=== PATIENT | male | born 1970 | race Hispanic/Latino ===

== ENCOUNTER 2024-04-11 07:05 | Observation (INO) | payer BC ==
[2024-04-10 10:53] LABS: BASOPHILS # (AUTO) 0.1 (0.0-0.1); BASOPHILS % 0.5 % (0.0-1.0); EOSINOPHILS # (AUTO) 0.2 (0.0-0.4); EOSINOPHILS % 1.9 % (0.0-6.0); HEMATOCRIT 47.1 % (38.2-49.6); HEMOGLOBIN 14.8 g/dL (14.0-18.0); LYMPHOCYTES # (AUTO) 3.5 (1.0-3.2); LYMPHOCYTES % 33.9 % (18.0-39.1); MEAN CORPUSCULAR HGB CONC 31.4 g/dL (31-35); MEAN CORPUSCULAR VOLUME 92.4 fL (81-99); MONOCYTES # (AUTO) 0.8 (0.2-0.8); MONOCYTES % 7.3 % (4.4-11.3); NEUTROPHILS # (AUTO) 5.8 (2.1-6.9); NEUTROPHILS % 56.2 % (38.7-80.0); PLATELET COUNT 245 x10e3/uL (140-360); RED CELL DISTRIBUTION WIDTH 13.5 % (11.7-14.4); WHITE BLOOD COUNT 10.36 x10e3/uL (4.8-10.8)
[2024-04-10 11:07] LABS: INR 0.87; PROTHROMBIN TIME 12.4 seconds (11.9-14.5)
[2024-04-10 11:08] LABS: PARTIAL THROMBOPLASTIN TIME 25.1 seconds (23.8-35.5)
[2024-04-10 11:19] LABS: ANION GAP 14.5 mmol/L (8-16); CALCIUM 10.2 mg/dL (8.4-10.2); CREATININE, SERUM 0.91 mg/dL (0.72-1.25); POTASSIUM 3.5 mmol/L (3.5-5.1)
[~2024-04-11] VITALS: Ht 180.3 cm; Wt 86.2 kg
[2024-04-11] MEDS: CEFAZOLIN SODIUM 2 GM ONE (08:03)
[2024-04-11] MEDS: LACTATED RINGER'S 1,000 ML ONE (08:03)
[2024-04-11] MEDS ORDERED: ZINC PO (08:05)
[2024-04-11] MEDS ORDERED: VITAMIN B-650 MG PO (08:05)
[2024-04-11] MEDS ORDERED: POTASSIUM99 M1 PO (08:05)
[2024-04-11] MEDS ORDERED: FOLIC ACID0.4 MG PO (08:05)
[2024-04-11] MEDS ORDERED: LIDOCAINE HCL 2% LOCAL INJ 5 ML SDV VIAL INJ ONE (08:11)
[2024-04-11] MEDS ORDERED: ACETAMINOPHEN 1000 MG/100 ML 100 ML IV ONE (08:11)
[2024-04-11] MEDS ORDERED: ROCURONIUM BROMIDE 1 ML IV ONE (08:11)
[2024-04-11] MEDS ORDERED: MIDAZOLAM HCL 2 MG/2 ML VIAL ONE (08:11)
[2024-04-11] MEDS ORDERED: PROPOFOL IV EMULSION 10 MG/ML 20 ML VIAL ONE (08:11)
[2024-04-11] MEDS ORDERED: FENTANYL CITRATE/PF 100MCG/2 ML INJ ONE ×2 (08:11→10:27)
[2024-04-11] MEDS ORDERED: ONDANSETRON HCL INJ 2MG/ML 2ML 2 MG/ML VIAL ONE (09:37)
[2024-04-11] MEDS ORDERED: DEXAMETHASONE SOD PHOS INJ 4 MG/ML SDV ONE (09:37)
[2024-04-11] MEDS ORDERED: HYDROCODON-ACE1 EA12 PO (10:40)
[2024-04-11] MEDS ORDERED: MAGNESIUM/ALUMINUM/SIMETHICONE 30 ML UDC PO PRN (10:45)
[2024-04-11] MEDS ORDERED: PROMETHAZINE HCL (IM) 25 MG/ML VIAL IM PRN (10:45)
[2024-04-11] MEDS ORDERED: CARISOPRODOL 350 MG TAB PO PRN (10:45)
[2024-04-11] MEDS ORDERED: OXYCODONE/ACETAMINOPHEN 5-325 1 EACH TABLET PO PRN (10:45)
[2024-04-11] MEDS ORDERED: ACETAMINOPHEN 325 MG TAB PO PRN (10:45)
[2024-04-11] MEDS ORDERED: ONDANSETRON HCL INJ 2MG/ML 2ML 2 MG/ML VIAL IV PRN (10:45)
[2024-04-11] MEDS ORDERED: Morphine 10mg syringe 10 MG/ML INJ IM PRN (10:45)
[2024-04-11] MEDS ORDERED: ZOLPIDEM TARTRATE 5 MG TAB PO PRN (10:45)
[2024-04-11 12:21] VITALS: BP 132/89; PULSE 68; RESP 18; TEMP 97.5; O2SAT 96
[2024-04-11] MEDS: LACTATED RINGER'S 1,000 ML IV SCH (12:39)
[2024-04-11 13:26] VITALS: BP 132/89; PULSE 68; RESP 18; TEMP 97.5; O2SAT 96
[2024-04-11 13:36] VITALS: BP 132/89; PULSE 68; RESP 18; TEMP 97.5; O2SAT 96
[2024-04-11 17:17] VITALS: BP 136/96; PULSE 91; RESP 18; TEMP 97.8; O2SAT 95
[2024-04-11] MEDS ORDERED: MORPHINE SULFATE 5 MG/ML VIAL IM PRN (18:45)
[2024-04-11 19:30] VITALS: BP 134/83; PULSE 112; RESP 18; TEMP 98.4; O2SAT 92
[2024-04-11 21:00] VITALS: BP 134/83; PULSE 112; RESP 18; TEMP 98.4; O2SAT 92
[2024-04-12 00:01] VITALS: BP 122/77; PULSE 94; RESP 18; TEMP 98.3; O2SAT 95
[2024-04-12 03:19] VITALS: BP 116/76; PULSE 98; RESP 18; TEMP 98.2; O2SAT 95
[2024-04-12 08:23] VITALS: BP 125/84; PULSE 70; RESP 18; TEMP 98; O2SAT 94
[2024-04-12 11:13] VITALS: BP 125/84; PULSE 70; RESP 18; TEMP 98; O2SAT 94
[2024-04-12 11:44] VITALS: BP 122/79; PULSE 81; RESP 18; TEMP 97.5; O2SAT 97
== END 2024-04-12 12:31 | disposition home or self-care (01) ==
LOC: OR 07:05 → PACU V 12:11 → MED/SURG2 12:12
PROVIDERS: ADMIT Neurological Surgery; ATTEND Neurological Surgery
DX: M51.16 Intervertebral disc disorders with radiculopathy, lumbar region (principal); I45.10 Unspecified right bundle-branch block; Z01.810 Encounter for preprocedural cardiovascular examination; Z01.812 Encounter for preprocedural laboratory examination; Z01.818 Encounter for other preprocedural examination
CPT/HCPCS: 36415; 63030; 71046; 72020; 80048; 85025; 85610; 85730; 86850; 86900; 88304; 88311; 93005; G0378 ×2; J0131; J0690 ×2; J1100; J2003; J2250; J2405; J2704; J3010; J7121; J2270